=== PATIENT | female | born 1985 | race Asian ===

== ENCOUNTER 2018-06-19 08:51 | Emergency (ER) | payer OTHER ==
[~2018-06-19] VITALS: Ht 149.9 cm; Wt 45.8 kg
[2018-06-19 09:00] VITALS: BP 121/74; Ht 149.9 cm; Wt 45.8 kg
[2018-06-19 09:17] LABS: microscopic required? NO
[2018-06-19 10:00] LABS: urine erythrocyte NEGATIVE (NEGATIVE)
== END 2018-06-19 10:17 | disposition home or self-care (01) ==
LOC: ED 08:51
PROVIDERS: Emergency Medicine
DX: J30.9 Allergic rhinitis, unspecified (principal)

== ENCOUNTER → 2018-10-02 | Outpatient (CLI) | payer OTHER | END | disposition home or self-care (01) | LOC: LB 07:34 | DX: R00.9 Unspecified abnormalities of heart beat (principal) ==